=== PATIENT | female | born 1985 | race Caucasian/White ===

== ENCOUNTER 2024-07-04 11:08 | Emergency (ER) | payer MEDICAID ==
[~2024-07-04] VITALS: Ht 162.6 cm; Wt 100.0 kg
[2024-07-04] MEDS ORDERED: AMOX-580 PO (13:08)
[2024-07-04] MEDS ORDERED: HYDR-3965 PO (13:08)
[2024-07-04 13:13] VITALS: BP 156/71; PULSE 78; RESP 16; TEMP 98.1; O2SAT 96
== END 2024-07-04 13:14 | disposition home or self-care (01) ==
LOC: ER 11:10
DX: K04.7 Periapical abscess without sinus (principal); K08.89 Other specified disorders of teeth and supporting structures; K02.9 Dental caries, unspecified
CPT/HCPCS: 99283

== ENCOUNTER 2024-12-11 08:14 | Emergency (ER) | payer MEDICAID ==
[~2024-12-11] VITALS: Ht 162.6 cm; Wt 94.0 kg
[2024-12-11] MEDS ORDERED: CLIN-214 PO (08:31)
[2024-12-11] MEDS: clindamycin 150mg capsule PO ONE (08:38)
[2024-12-11 08:40] VITALS: BP 127/58; PULSE 68; RESP 16; TEMP 97.8; O2SAT 99
== END 2024-12-11 08:41 | disposition home or self-care (01) ==
LOC: ER 08:15
DX: K04.7 Periapical abscess without sinus (principal); Z79.2 Long term (current) use of antibiotics
CPT/HCPCS: 99283